=== PATIENT | female | born 1990 | race Caucasian/White ===

== ENCOUNTER → 2017-11-30 11:15 | Outpatient (CLI) | payer SELFPAY ==
[2017-12-01 10:57] LABS: Prolactin 12.1 ng/mL; Thyroid Stim Hormone (TSH) 2.02 uIU/mL (0.358-3.74)
[2017-12-01 10:58] LABS: Progesterone Level 9.44 ng/mL (See Comment)
[2017-12-07 15:31] LABS: HPV Reflexed? NOT INDICATED
== END ==
PROVIDERS: Visit Provider Obstetrics & Gynecology
DX: Z12.4 Encounter for screening for malignant neoplasm of cervix (principal); N97.0 Female infertility associated with anovulation
CPT/HCPCS: 84144; 84146; 84443; 88175; G0145